=== PATIENT | male | born 1990 | race Caucasian/White ===

== ENCOUNTER 2016-12-03 02:08 | Emergency (ER) | payer OTHER ==
[2016-12-03 02:14] VITALS: BP 154/83; PULSE 73; TEMP 97.6; BMI 21.1
[2016-12-03] MEDS ORDERED: SODIUM CHLORIDE 1,000 ML IV ONE ×2 (02:21)
[2016-12-03] MEDS ORDERED: ONDANSETRON 4 MG/2 ML VIAL IVPB ONE (02:21)
--- NOTE | 2016-12-03 02:23 | PDOC ---
[id number]/V, RIB/BACK PAIN Time Seen by Provider: 12/03/16 02:12 History Source: Patient Exam Limitations: No Limitations - History of Present Illness Initial Comments: 12/03/16 02:22 This is a 26-year-old male who comes in complaining of a nausea vomiting multiple episodes since this evening. Patient said he is a vomited more than 20 times and unable to keep any by mouth fluids down. Patient denies any fever, chills or abdominal pain. Patient said that his lower ribs hurt from forceful vomiting. PAST MEDICAL HISTORY: no significant history PAST SURGICAL HISTORY: no significant history FAMILY HISTORY: no pertinant history SOCIAL HISTORY: Pt lives with family and is employed. MEDICATIONS: reviewed ALLERGIES: As per nursing notes Review of Systems General: No fevers or chills, no weakness, no weight loss HEENT: No change in vision. No sore throat,. No ear pain CardioVascular: No chest pain or shortness of breath Respiratory:No cough, or wheezing. Gastrointestinal: Nausea and vomiting as per history of present illness Genitourinary: No dysuria, hematuria, or frequency Musculoskeletal: No joint or muscle pain or swelling Neurologic: No headache, vertigo, dizziness or loss of consciousness Psychiatric: nor depression Skin: No rashes or easy bruising Endocrine: no increased thirst or abnormal weight change Allergic: no skin or latex allergy All other systems reviewed and normal Exam: General: Well-nourished well-developed individual, no acute distress HEENT: Throat: Normal, tonsils normal, no erythema or exudate, mucous membranes dry Neck: Supple, no meningeal signs, no lymphadenopathy Eyes::Pupils equal reactive and round, extraocular motion intact Chest: Nontender to palpation Cardiac: S1-S2 normal, regular rate and rhythm, no murmurs rubs or gallops Respiratory: Lungs clear to auscultation bilateral Abdomen: Soft, nondistended, normal bowel sounds, nontender to palpation diffusely Extremities: Warm, dry, no cyanosis, clubbing, or edema Skin: No rashes Neuro: Alert and oriented x3, nonfocal exam, grossly intact, normal gait Psych: Normal mood and affect Reevaluation post 2 L of fluid. Patient feels much better, there is been no further vomiting in the emergency room. Patient able to tolerate by mouth's. Patient discharged home with vomiting discharge instructions. Past History - Past Medical History Allergies/Adverse Reactions: Allergies Allergy/AdvReac Type Severity Reaction Status Date / Time No Known Allergies Allergy Verified 05/18/15 17:25 Home Medications: Ambulatory Orders NK [No Known Home Medication] 12/03/16 Other medical history: DENIES - Psycho/Social/Smoking Cessation Hx Anxiety: No Suicidal Ideation: No Smoking History: Never smoked Hx Alcohol Use: No *Physical Exam - Vital Signs Last Vital Signs Temp Pulse Resp BP Pulse Ox 97.6 F 73 16 154/83 100 12/03/16 02:10 12/03/16 02:10 12/03/16 02:10 12/03/16 02:10 12/03/16 02:10 *DC/Admit/Observation/Transfer Diagnosis at time of Disposition: Acute vomiting, Dehydration - Discharge Dispostion Disposition: HOME Condition at time of disposition: Stable - Patient Instructions Printed Discharge Instructions: DI for Vomiting -- Adult Additional Instructions: Clear liquids only for the next 6 hours.. After that if you have had no further vomiting you may have bananas, rice, applesauce, or toast. If no further vomiting for another 8 hours you may have regular food. If you vomit again then nothing to eat or drink for 2 hours. then start back with the clear liquids. Return to the emergency department immediately with ANY new, persistent or worsening symptoms. You MUST call and follow up with your doctor tomorrow if not better. Please make sure your doctor reviews the results of your emergency evaluation.
[2016-12-03] MEDS ORDERED: ONDANSETRON 4 MG/2 ML VIAL ONE (02:53)
== END 2016-12-03 04:55 | disposition home or self-care (01) ==
LOC: FER 02:08
PROC: 3E033GC Introduction of Other Therapeutic Substance into Peripheral Vein, Percutaneous Approach (ICD-10-PCS; principal; 2016-12-03)
PROC: 3E0337Z Introduction of Electrolytic and Water Balance Substance into Peripheral Vein, Percutaneous Approach (ICD-10-PCS; 2016-12-03)
DX: R11.10 Vomiting, unspecified (principal); E86.0 Dehydration
CPT/HCPCS: 99282-25